=== PATIENT | male | born 1970 | race Two or more races ===

== ENCOUNTER 2018-08-23 20:54 | Inpatient (IN) | payer MEDICAID ==
[~2018-08-23] VITALS: Ht 160 cm; Wt 64.0 kg
[2018-08-24] MEDS ORDERED: IV D5/0.45 NACL 1,000 ML IV PRN (01:09)
[2018-08-24] MEDS ORDERED: MAGNESIUM HYDROXIDE 30 ML UDC PO PRN (01:30)
[2018-08-24] MEDS ORDERED: MAG HYDROX/AL HYDROX/SIMETH 30 ML UDC PO PRN (01:30)
[2018-08-24] MEDS ORDERED: Z GUARD REMEDY 2 OZ OINT TP PRN (01:30)
[2018-08-24] MEDS ORDERED: ZOLPIDEM TARTRATE 5 MG TABLET PO PRN (01:30)
[2018-08-24] MEDS ORDERED: HYDROCODONE/APAP 5/325MG 1 EACH TABLET PO PRN (01:30)
[2018-08-24] MEDS ORDERED: ONDANSETRON HCL/PF 4 MG/2 ML VIAL IVP PRN (01:30)
[2018-08-24] MEDS ORDERED: MORPHINE SULFATE INJ 2 MG/ML DISP.SYRIN IV PRN (01:30)
[2018-08-24] MEDS ORDERED: HYDROCODONE/APAP 10/325MG 1 EA TABLET PO PRN (01:30)
[2018-08-24] MEDS ORDERED: ACETAMINOPHEN 325 MG TABLET PO PRN (01:30)
--- NOTE | 2018-08-24 01:45 | NUR ---
RN NOTES PATIENT IS A DIRECT ADMIT FROM [facility][age][facility] FOUR, NO SIGNS OF ACUTE RESPIRATORY OR CARDIAC DISTRESS NOTED, MD AWARE, INITIAL ASSESSMENT DONE, SKIN IS INTACT, ORIENTED PATIENT TO UNIT, SAFETY MEASURES IN PLACE, WILL MONNITOR ACCORDINGLY.
--- NOTE | 2018-08-24 07:26 | NUR ---
MS RN OPENING NOTES RECEIVED PATIENT AWAKE IN BED IN NO ACUTE SIGNS OF DISTRESS. A/O X4. ABLE TO MAKE NEEDS KNOWN, DENIES PAIN OR ANY DISCOMFORTS AT THIS TIME. ON ROOM AIR, RESPIRATIONS EVEN AND UNLABORED. IV ACCESS ON LAC INTACT AND PATENT, IVF OF D5 1/2 NS @ 75ML/HR INFUSING WELL, NO S/S OF INFILTRATIONS NOTED. SAFETY MEASURES IN PLACE. BED IN LOW LOCKED POSITION WITH SR UP X2. CALL LIGHT WITHIN EASY REACH OF PT. WILL CONTINUE TO MONITOR.
--- NOTE | 2018-08-24 07:36 | NUR ---
RN NOTES ALL NEEDS ATTENDED AND MET, PATIENT ABLE TO REST AND SLEEP AT INTERVALS, DENIES PAIN AT THIS TIME, ENDORSED TO AM NURSE FOR CONTINUITY OF CARE.
[2018-08-24] MEDS ORDERED: METF-442 PO (07:58)
[2018-08-24] MEDS ORDERED: GLIP10TA11 PO (07:58)
[2018-08-24] MEDS ORDERED: SIMV20TA6 PO (07:58)
[2018-08-24] MEDS ORDERED: GABA-534 PO (07:58)
[2018-08-24 08:00] VITALS: BP 113/73
[2018-08-24 10:50] LABS: CALCIUM, SERUM 8.8 mg/dL (8.5-10.1); CREATININE 0.6 mg/dL (0.6-1.3); POTASSIUM 4.2 mmol/L (3.5-5.1)
--- NOTE | 2018-08-24 11:10 | NUR ---
RN NOTES RECEIVED CALL FROM [employer] THAT PT HAS CRITICAL HIGH LEVEL OF GLUCOSE 460. COSMETICS AND TOILETRIES SALESPERSON HILARIO GERBER MADE AWARE WITH ORDER TO PUT PT ON MODERATE SSI AND ACCUCHECKS ACHS. WILL CARRY OUT ORDERS AND WILL CONTINUE TO MONITOR PT.
[2018-08-24] MEDS ORDERED: DEXTROSE 50%-WATER 50 ML DISP.SYRIN IV PRN ×3 (11:30→16:00)
[2018-08-24] MEDS ORDERED: *INSULIN REGULAR(HUMULIN R)HUM 100 UNIT/ML VIAL SQ PRN ×3 (11:30→16:00)
[2018-08-24] MEDS ORDERED: INSULIN REGULAR, HUMAN 100 UNIT/ML 3 ML VIAL SQ PRN ×2 (11:30→12:30)
[2018-08-24] MEDS ORDERED: BLOOD SUGAR DIAGNOSTIC 1 EACH STRIP VI SCH (12:00)
--- NOTE | 2018-08-24 12:05 | NUR ---
RN NOTES PATIENT NOTED WITH BS OF 470 MG/DL, RECHECKED AND WAS 416 MG/DL. GENIA GERBER MADE AWARE WITH ORDER TO GIVE 15 UNITS REGULAR INSULIN PER SLIDING SCALE AND TO CHANGE SLIDING SCALE FROM MODERATE TO AGGRESSIVE SCALE. ORDERS CARRIED OUT. WILL CONTINUE TO MONITOR.
[2018-08-24 16:00] VITALS: BP 103/71
[2018-08-24] MEDS: IV NS 0.9% 1,000 ML IV SCH (16:23)
--- NOTE | 2018-08-24 16:28 | NUR ---
RN NOTES PATIENT WITH LOW LEVEL SODIUM 129 TODAY AND PT NOTED WITH ELEVATED BLOOD SUGAR EARLIER. GENIA GERBER WENT TO SEE AND EVALUATE PT. SHE CHANGED IVF OF D5 1/2 NS TO NS @ 75ML/HR. WILL CONTINUE TO MONITOR.
[2018-08-24] MEDS: METFORMIN 500 MG TABLET PO SCH (17:00)
[2018-08-24] MEDS: INSULIN REGULAR, HUMAN 100 UNIT/ML 3 ML VIAL SQ PRN ×2 (17:18→21:26)
[2018-08-24] MEDS: BLOOD SUGAR DIAGNOSTIC 1 EACH STRIP IN SCH ×2 (17:19→21:20)
[2018-08-24] MEDS: glipiZIDE 10 MG TABLET PO SCH (17:21)
[2018-08-24] MEDS ORDERED: BLOOD SUGAR DIAGNOSTIC 1 EACH STRIP IN SCH (17:30)
--- NOTE | 2018-08-24 18:33 | NUR ---
MS RN CLOSING NOTES PATIENT AWAKE AND RESTING IN BED. A/O X4. ABLE TO MAKE NEEDS KNOWN. NO ACUTE EVENT NOTED THROUGHOUT THE DAY. ON ROOM AIR, TOLERATING WELL WITH NO SOB NOTED. DIABETIC STATUS CLOSELY MONITORED. ALL NEEDS AND CARE ATTENDED WELL. IV ACCESS ON LAC G #20 INTACT AND PATENT, IVF OF NS @ 75ML/HR INFUSING WELL, NO S/S OF INFILTRATIONS NOTED. SAFETY MEASURES KEPT IN PLACE. BED IN LOW LOCKED POSITION WITH SR UP X2. CALL LIGHT AND BEDSIDE TABLE WITHIN EASY REACH OF PT. WILL ENDORSE TO DIGITAL ACCOUNT DIRECTOR NURSE FOR INDIGO.
--- NOTE | 2018-08-24 19:05 | NUR ---
MS RN PM OPENING NOTES BEDSIDE REPORT RECIEVED FROM TATIANNA WRIGHT . PATIENT AWAKE AND RESTING IN BED. A/O X4. REVIEWED POC. QUESTIONS CONCERNS ADDRESSED. FAMILY AT THE BEDSIDE. ON ROOM AIR, TOLERATING WELL WITH NO SOB NOTED. IV ACCESS ON LAC G #20 INTACT AND PATENT, IVF OF NS @ 75ML/HR INFUSING WELL, NO S/S OF INFILTRATIONS NOTED. SAFETY MEASURES KEPT IN PLACE. BED IN LOW LOCKED POSITION WITH SR UP X2. CALL LIGHT AND BEDSIDE TABLE WITHIN EASY REACH OF PT.
[2018-08-24 20:00] VITALS: BP 103/67
--- NOTE | 2018-08-24 21:14 | NUR ---
DR. ACEVEDO ONCOLOGIST DR. ACEVEDO IN TO SEE PATIENT. WANTS GI DOCTOR TO SEE PATIENT IN HOPES OF DOING ERCP TO MAYBE OBTAIN BIOPSY. STATES SHE WILL CALL AND SPEAK WITH HILARIO CORMIER ABOUT THIS.
[2018-08-24] MEDS: SIMVASTATIN 20 MG TABLET PO SCH (21:27)
[2018-08-25] MEDS: IV NS 0.9% 1,000 ML IV SCH ×2 (05:43→18:39)
[2018-08-25] MEDS: INSULIN REGULAR, HUMAN 100 UNIT/ML 3 ML VIAL SQ PRN ×3 (06:30→18:19)
[2018-08-25] MEDS: METFORMIN 500 MG TABLET PO SCH ×2 (06:35→17:00)
[2018-08-25] MEDS: BLOOD SUGAR DIAGNOSTIC 1 EACH STRIP IN SCH ×4 (06:35→22:23)
--- NOTE | 2018-08-25 06:36 | NUR ---
METFORMIN MISSED DOSE. RN CLOSING NOTE. METFORMIN HELD SINCE PATIENT HAD CTA SCAN WITH CONTRAST PRIOR TO BE ADMITTED. ORDER NEEDS TO BE CLARIFIED WITH MD. PATIENT RESTING IN BED IF INFUSING TO LEFT AC, DENIES PAIN SOB. REVIEWED POC. WILL ENDORSE TO NEXT SHIFT.
[2018-08-25 07:21] LABS: BASOPHILS # (AUTO) 0.1 /CMM (0.0-0.2); BASOPHILS % (AUTO) 1.9 % (0.0-2.0); EOSINOPHILS % (AUTO) 1.8 % (0.0-6.0); HEMATOCRIT 40 % (39-51); HEMOGLOBIN 13.2 g/dL (13.5-17.5); LYMPHOCYTES # (AUTO) 3.2 /CMM (0.8-4.8); LYMPHOCYTES % (AUTO) 71.3 % (20.0-44.0); MEAN CORPUSCULAR HGB CONC 33 g/dl (31.0-36.0); MEAN CORPUSCULAR VOLUME 93 fL (80-96); MONOCYTES # (AUTO) 0.4 /CMM (0.1-1.30); MONOCYTES % (AUTO) 8.7 % (2.0-12.0); NEUTROPHILS # (AUTO) 0.7 /CMM (1.8-8.9); NEUTROPHILS % (AUTO) 16.3 % (43.0-81.0); PLATELET COUNT (AUTO) 178 /CMM (150-450); RED BLOOD CELL COUNT(AUTO) 4.26 MIL/uL (4.5-6.0); WHITE BLOOD COUNT (AUTO) 4.5 K/uL (4.3-11.0)
[2018-08-25 07:33] LABS: ALANINE AMINOTRANSFERASE 319 U/L (12-78); ALBUMIN 2.8 g/dL (3.4-5.0); ALKALINE PHOSPHATASE 385 U/L (46-116); ASPARTATE AMINOTRANSFERASE 183 U/L (15-37); BILIRUBIN,TOTAL 17.8 mg/dL (0.2-1.0); CALCIUM, SERUM 8.7 mg/dL (8.5-10.1); CARBON DIOXIDE 25 mmol/L (21-32); CHLORIDE 102 mmol/L (98-107); CREATININE 0.4 mg/dL (0.6-1.3); GLUCOSE 192 mg/dL (74-106); MAGNESIUM 1.8 mg/dL (1.8-2.4); PHOSPHORUS 3.8 mg/dL (2.5-4.9); POTASSIUM 3.9 mmol/L (3.5-5.1); SODIUM SERUM 137 mmol/L (136-145); TOTAL PROTEIN, SERUM 5.7 g/dL (6.4-8.2); UREA NITROGEN, BLOOD 10 mg/dL (7-18)
[2018-08-25 07:46] LABS: CHOLESTEROL 384 mg/dL (<200); LDL 372 mg/dL (0-99); THYROID STIMULATING HORMONE 0.579 uIU/mL (0.358-3.74); TRIGLYCERIDES 215 mg/dL (30-150)
[2018-08-25 07:50] LABS: HDL CHOLESTEROL < 10 mg/dL (40-60)
[2018-08-25 08:00] VITALS: BP 113/79
--- NOTE | 2018-08-25 08:00 | NUR ---
MS RN AM NOTES RECEIVED PATIENT AWAKE AND RESTING IN BED. A/O X4. REVIEWED POC. QUESTIONS CONCERNS ADDRESSED.ON ROOM AIR, TOLERATING WELL WITH NO SOB NOTED.DENIES ANY PAIN OR DISTRESS. IV ACCESS ON LAC G #20 INTACT AND PATENT, IVF OF NS @ 75ML/HR INFUSING WELL, NO S/S OF INFILTRATIONS NOTED. SAFETY MEASURES KEPT IN PLACE. BED IN LOW LOCKED POSITION WITH SR UP X2. CALL LIGHT AND BEDSIDE TABLE WITHIN EASY REACH OF PT.
[2018-08-25] MEDS: GABAPENTIN 300 MG CAPSULE PO SCH (08:35)
[2018-08-25] MEDS: glipiZIDE 10 MG TABLET PO SCH ×2 (08:35→18:15)
[2018-08-25 10:39] LABS: BAND % (MANUAL) 4 % (0.0-5.0); EOSINOPHILS % (MANUAL) 2 % (0-4); LYMPHOCYTES % (MANUAL) 20 % (16-48); MONOCYTES % (MANUAL) 6 % (0-11.0); NEUTROPHILS % (MANUAL) 68 (42-76)
[2018-08-25 16:00] VITALS: BP 101/72
--- NOTE | 2018-08-25 18:00 | NUR ---
INFORMED DR CHUA FOR GI CONSULT PER [facility]. DR CHUA STATED THAT THE PT NEEDS CT OF THE PANCREAS WITH CONTRAST OR MRI AND EUS FOR TISSUE DX,WHICH WE DON'T HAVE IN THE HOSPITAL , ERCP WITH BILIARY STENT CAN BE DONE AT THE SAME TIME WITH EUS.INFORMED DR ACEVEDO TO CALL DR CHUA.
--- NOTE | 2018-08-25 18:30 | NUR ---
DR ACEVEDO AWARE AND WILL ARRANGE FOR TRANSPORT FOR [facility] DIDN'T ACCEPT THE PT.
[2018-08-25 20:00] VITALS: BP 106/72
--- NOTE | 2018-08-25 20:01 | NUR ---
MS/RN RECEIVE PATIENT AWAKE, ALERT, ORIENTED, COMFORTABLE, NO C/O PAIN, NO DISTRESS NOTED, CALL LIGHT IN REACH. WILL MONITOR.
[2018-08-25] MEDS: SIMVASTATIN 20 MG TABLET PO SCH (22:23)
--- NOTE | 2018-08-26 00:28 | NUR ---
MS/RN PATIENT IS SLEEPING AT THIS TIME, AROUSABLE, APPEAR COMFORTABLE, NO DISTRESS NOTED, CALL LIGHT IN REACH. WILL CONTINUE TO MONITOR.
[2018-08-26] MEDS: INSULIN REGULAR, HUMAN 100 UNIT/ML 3 ML VIAL SQ PRN ×3 (06:32→17:29)
--- NOTE | 2018-08-26 07:10 | NUR ---
MS RN INITIAL NOTES Report received at bedside. Patient received in bed, awake, alert and comfortable. Alert and oriented x4, verbally responsive. Patient denies any pain/discomfort at the moment. Not in any type of distress. Safety measures in place. Will continue to monitor and assess patient.
[2018-08-26] MEDS: BLOOD SUGAR DIAGNOSTIC 1 EACH STRIP IN SCH ×3 (07:39→17:29)
[2018-08-26 08:00] VITALS: BP 113/69
[2018-08-26] MEDS: IV NS 0.9% 1,000 ML IV SCH (08:09)
[2018-08-26] MEDS: METFORMIN 500 MG TABLET PO SCH ×2 (08:21→16:50)
[2018-08-26] MEDS: glipiZIDE 10 MG TABLET PO SCH ×2 (08:21→16:50)
[2018-08-26] MEDS: GABAPENTIN 300 MG CAPSULE PO SCH (08:21)
[2018-08-26] MEDS ORDERED: IV NS 0.9% 1,000 ML IV PRN (10:27)
--- NOTE | 2018-08-26 15:28 | NUR ---
MS RN NOTES Gave report to Caryn WRIGHT from [facility] regarding Danielle Modi.
[2018-08-26 16:00] VITALS: BP 101/66
--- NOTE | 2018-08-26 19:33 | NUR ---
MS RN NOTES Patient remained in room. Ambulatory with standby assist with steady gait. Alert and oriented x4, verbally responsive. Denies any pain/discomfort. No SOB/labored breathing noted. Not in any type of distress. Discharge instructions provided, reviewed and signed by patient. Belongings form reviewed and signed by patient. All questions and concerns address. All needs provided and met. Left IV access on LAC per Caryn's request ([facility] RN). 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 Safety measures in place. Bed in lowest position with call light within reach. Endorsed to oncoming shift nurse
--- NOTE | 2018-08-26 19:43 | NUR ---
RN OPENING NOTES RECEIVED PATIENT AWAKE IN BED. PATIENT IS AWAITING PICKUP TO BE TRANSFERRED TO ANOTHER FACILITY. NO DISCOMFORT OR PAIN OF RIGHT NOW. AM NURSE GAVE REPORT TO LASHAY. ALL PAPERWORK SIGNED. JUST AWAITING FOR TRANSPORTATION RIGHT NOW.
--- NOTE | 2018-08-26 22:03 | NUR ---
GO CART MECHANIC NOTES PATIENT WAS PICKED UP VIA GURNEY AT 2105 TO BE TRANSFERRED TO [facility]. VITAL SIGNS STABLE UPON DISCHARGE: BP 115/76, PULSE 81, RESP 19, TEMP 97.2, O2 SAT 100%. ALL PAPER WORK WAS SIGNED. PATIENT IN STABLE CONDITION PRIOR TO DISCHARGE.
== END 2018-08-26 21:05 | disposition short-term general hospital (02) | DRG 281 ==
LOC: MED 08-24 00:33
PROVIDERS: ADMIT Registered Nurse; ATTEND Nurse Practitioner Acute Care
DX: C25.8 Malignant neoplasm of overlapping sites of pancreas (principal); K83.1 Obstruction of bile duct; E11.65 Type 2 diabetes mellitus with hyperglycemia; E87.1 Hypo-osmolality and hyponatremia; E78.5 Hyperlipidemia, unspecified; R74.0 Nonspecific elevation of levels of transaminase and lactic acid dehydrogenase [LDH]; Z79.84 Long term (current) use of oral hypoglycemic drugs
CPT/HCPCS: 36415; 71250-TC; 80048-TC; 80053-TC; 80061-TC; 82962-TC; 83735-TC; 84100-TC; 84443-TC; 85025-TC; 85610-TC; 85730-TC; 86301; 87081-TC; G0378; J1815; J7030